=== PATIENT | male | born 1960 | race Caucasian/White ===

== ENCOUNTER 2017-04-02 05:50 | Observation (INO) | payer MEDICARE ==
[~2017-04-02] VITALS: Ht 175.3 cm; Wt 98.9 kg
[~2017-04-02 05:50] MED LIST: AMLODIPINE BES2.5 MG PO; ASPIRIN81 MG PO; ATORVASTATIN CA10 MG PO; CELEXA10 MG PO; FUROSEMIDE20 MG PO; IRON18 MG PO; ISOSORBIDE MONO10 MG PO; KAYEXALATE453.6 GM PO; LANTUS100 UNITS/ SQ; LISINOPRIL2.5 MG PO; NITROGLYCERIN0.4 MG SL; PLAVIX75 MG PO; VITAMIN D1000 UNIT PO
[2017-04-02] MEDS ORDERED: ATORVASTATIN CA20 MG PO (05:52)
[2017-04-02] MEDS ORDERED: CITALOPRAM HBR20 MG PO (05:53)
[2017-04-02] MEDS ORDERED: FAMOTIDINE20 MG PO (05:53)
[2017-04-02] MEDS ORDERED: BUMETANIDE2 MG PO (05:54)
[2017-04-02] MEDS ORDERED: KIONEX15 GM/60 M PO (05:57)
[2017-04-02] MEDS ORDERED: MULTIVITAMINS1 EAC7 PO (06:00)
[2017-04-02] MEDS ORDERED: ONDANSETRON HCL INJ 2 MG/ML VIAL IV STA (06:00)
[2017-04-02] MEDS ORDERED: SODIUM BICARBO650 MG PO (06:00)
[2017-04-02] MEDS ORDERED: HYDRALAZINE HCL25 MG PO (06:01)
[2017-04-02] MEDS ORDERED: ISOSORBIDE MONO30 MG PO (06:03)
[2017-04-02] MEDS ORDERED: METOPROLOL TART25 MG PO (06:08)
[2017-04-02] MEDS ORDERED: IRON PO (06:08)
[2017-04-02 06:09] LABS: BASOPHILS # (AUTO) 0.1 (0.0-0.1); BASOPHILS % 0.5 % (0.0-1.0); EOSINOPHILS # (AUTO) 0.4 (0.0-0.4); HEMOGLOBIN 13.6 g/dL (14.0-18.0); LYMPHOCYTES # (AUTO) 0.6 (1.0-3.2); LYMPHOCYTES % 5.9 % (18.0-39.1); MEAN CORPUSCULAR HEMOGLOBIN 30.9 pg (28-32); MEAN CORPUSCULAR VOLUME 90.9 fL (81-99); MONOCYTES # (AUTO) 0.8 (0.2-0.8); NEUTROPHILS # (AUTO) 8.2 (2.1-6.9); NEUTROPHILS % 81.3 % (38.7-80.0); PLATELET COUNT 163 x10e3/uL (140-360); RED CELL DISTRIBUTION WIDTH 13.1 % (11.7-14.4)
[2017-04-02 06:17] LABS: INR 0.89; PARTIAL THROMBOPLASTIN TIME 28.5 seconds (23.8-35.5); PROTHROMBIN TIME 12.5 seconds (11.9-14.5)
[2017-04-02] MEDS ORDERED: DIATRIZOATE MEGL/DIATRIZOA SOD 30 ML BTL PO ONE (06:17)
[2017-04-02 06:27] LABS: ALBUMIN 3.5 g/dL (3.5-5.0); ANION GAP 17.1 mmol/L (8-16); CALCIUM 9.2 mg/dL (8.4-10.2); CREATININE, SERUM 3.29 mg/dL (0.72-1.25); POTASSIUM 4.1 mmol/L (3.5-5.1)
[2017-04-02 06:29] LABS: CREATINE KINASE MB 1.3 ng/mL (0.00-5.00); TROPONIN I 0.016 ng/mL (0-0.300)
--- NOTE | 2017-04-02 06:57 | Diagnostic Imaging Report ---
EXAMINATION: CHEST SINGLE (PORTABLE) INDICATION: Syncopal episode COMPARISON: None FINDINGS: TUBES and LINES: None. LUNGS: Lungs are not well inflated. There are bibasilar atelectasis. There is mild prominence of the central pulmonary vasculature, consistent with pulmonary venous congestion. PLEURA: No pleural effusion or pneumothorax. HEART AND MEDIASTINUM: Cardiac size is mildly enlarged. There are atherosclerotic calcifications within the aorta. BONES AND SOFT TISSUES: No acute osseous lesion. Soft tissues are unremarkable. UPPER ABDOMEN: No free air under the diaphragm. IMPRESSION: No acute thoracic abnormality. Mild cardiomegaly without decompensation. Signed by: Dr. Sylvester Tapia M.D. on 04/02/2017 6:54 AM
--- NOTE | 2017-04-02 06:58 | Diagnostic Imaging Report ---
EXAMINATION: Head CT without contrast. HISTORY:Syncope, vomiting and weakness. COMPARISON:None. TECHNIQUE: Multidetector axial images were obtained from the foramen magnum to the vertex without contrast. The images were reconstructed using brain and bone algorithms. Thin section brain images were reformatted into coronal and sagittal planes. Intravenous contrast: None IMAGE QUALITY: Acceptable. FINDINGS: Skull/scalp: No abnormality. Parenchyma: Nonspecific few, scattered supratentorial white matter hypodensity are likely related to small vessel ischemic changes. No acute hemorrhage, mass or acute major vascular territorial infarct. Arteries: Atherosclerotic calcification in bilateral carotid siphon and V4 segment of the vertebral arteries. Dural sinuses: No abnormal density suggestive of thrombosis. Ventricles: No hydrocephalus or displacement. Extra-axial spaces: No abnormal density. Brain volume: Normal for age. Craniocervical junction: No mass, Chiari malformation, or basilar invagination. Sella: No mass. Paranasal/mastoid sinuses: Mild mucosal thickening in bilateral ethmoid sinuses. IMPRESSION: No acute intracranial abnormality. Signed by: Dr. Marcelle Haywood M.D. on 04/02/2017 6:54 AM
[2017-04-02] MEDS ORDERED: PANTOPRAZOLE 40 MG 10ML VIAL IV STA (07:11)
--- NOTE | 2017-04-02 08:26 | Diagnostic Imaging Report ---
PROCEDURE: CT ABDOMEN AND PELVIS WITHOUT CONTRAST TECHNIQUE: The abdomen and pelvis were scanned utilizing a multidetector helical scanner from the diaphragm to the lesser trochanter after the oral administration of Gastrografin intermixed with water. No IV contrast was administered. Coronal and sagittal multiplanar reformations were obtained. DLP: 762.44 mGy-cm COMPARISON: None. INDICATIONS: NAUSEA/VOMITTING WITH A HISTORY OF CKD FINDINGS: ABSENCE OF INTRAVENOUS CONTRAST DECREASES SENSITIVITY FOR DETECTION OF FOCAL LESIONS AND VASCULAR PATHOLOGY. LOWER THORAX: Normal. HEPATOBILIARY: No focal hepatic lesions. No biliary ductal dilatation. SPLEEN: No splenomegaly. PANCREAS: No focal masses or ductal dilatation. ADRENALS: No adrenal nodules. KIDNEYS/URETERS: No hydronephrosis, stones, or solid mass lesions. Right kidney has a maximal length of 10.2 cm and the left kidney has a maximal length of 10.2 cm. PELVIC ORGANS/BLADDER: Unremarkable. PERITONEUM / RETROPERITONEUM: No free air or fluid. LYMPH NODES: Multiple prominent inguinal lymph nodes. VESSELS: Atherosclerotic vascular disease. GI TRACT: No distention or wall thickening. The appendix is normal. BONES AND SOFT TISSUES: Degenerative changes of the spine. IMPRESSION: No acute abnormality within the abdomen or pelvis. Murali Wiley D.O. Dictated by: Murali Wiley D.O. on 04/02/2017 at 8:34 Electronically approved by: Murali Wiley D.O. on 04/02/2017 at 8:34
[2017-04-02] MEDS ORDERED: SODIUM CHLORIDE 0.9% 1000ML 1,000 ML IV SCH ×2 (09:33)
[2017-04-02] MEDS ORDERED: ONDANSETRON HCL INJ 2 MG/ML VIAL IV PRN (09:45)
[2017-04-02] MEDS ORDERED: MORPHINE SULFATE 2 MG/ML SYR IV PRN (10:00)
[2017-04-02] MEDS ORDERED: DEXTROSE 50% SYRINGE 50 ML IV PRN (13:45)
[2017-04-02] MEDS: HYDRALAZINE HCL 25 MG TAB PO SCH ×2 (14:08→20:56)
[2017-04-02] MEDS: SODIUM BICARBONATE 650 MG TAB PO SCH ×2 (14:08→20:57)
[2017-04-02] MEDS: METRONIDAZOLE 500MG/NS 100ML 100 ML IV SCH ×2 (14:08→22:00)
[2017-04-02] MEDS: METOCLOPRAMIDE HCL 10 MG TAB PO SCH ×3 (14:13→20:57)
--- NOTE | 2017-04-02 15:21 | History and Physical ---
PRIMARY CARE PROVIDER: Dr. Wilfred Sarmiento at the [facility]. CHIEF COMPLAINT: Nausea, vomiting and diarrhea. HISTORY OF PRESENT ILLNESS: Mr. Burgos is a 57-year-old gentleman who comes in complaining of nausea, vomiting and diarrhea for 12 hours. It started early this morning right after midnight. The patient got up to use the bathroom and had an unwitnessed syncopal event or near syncopal event. Patient called for his family who helped him back to bed. He cannot attribute the symptoms to anything he ate. He has had episodes of diarrhea in the past that resolved. Again, the nausea, vomiting and diarrhea started about 12 hours ago and continues. REVIEW OF SYSTEMS: He denies fever, chills or weight loss. He denies sinus congestion or sore throat. He denies chest pain or palpitations. He denies shortness breath, wheezing or cough. He has some mild generalized abdominal pain with nausea, vomiting and diarrhea. He denies dysuria or flank pain. He denies rash or pruritus. He denies joint pain or swelling. He denies bleeding or bruising. He denies headache or vertigo, but he has had a loss of consciousness. He denies depression, agitation, homicidal or suicidal ideation. PAST MEDICAL HISTORY: Significant for longstanding hypertension, type-2 diabetes, coronary artery disease with stent placed in 2010, end-stage renal disease on hemodialysis, and hyperlipidemia. He had coronary stents as noted above. MEDICATIONS: His regular medications include: 1. Pepcid 20 mg twice daily. 2. Nitroglycerin as needed. 3. Bumex 2 mg twice daily. 4. Iron twice daily. 5. Aspirin 81 mg daily. 6. Lipitor 40 mg at bedtime. 7. Celexa 40 mg at bedtime. 8. Plavix 75 mg daily. 9. Hydralazine 50 mg 3 times a day. 10. Imdur 30 mg twice a day. 11. Metoprolol 12.5 mg twice a day. 12. Multivitamin daily. 13. Sodium bicarbonate 1,200 mg 3 times a day. ALLERGIES: THE PATIENT HAS NO KNOWN DRUG ALLERGIES. FAMILY HISTORY: Remarkable for hypertension and diabetes. SOCIAL HISTORY: The patient is . American is his primary language. He does not smoke, drink or use illegal drugs. He is generally independently functioning. PHYSICAL EXAMINATION PSYCHIATRIC: He is alert and oriented times 3 with normal mood and affect. CONSTITUTIONAL: He has normal body habitus. He is in no acute distress. VITAL SIGNS: Blood pressure 113/72. Pulse 62 and regular. Respiratory rate 18. O2 sat 95%. Temperature 98.6. HEENT: His head is atraumatic. His eyes are anicteric with clear conjunctivae. Ears and nares are without erythema or discharge. Oropharynx is clear. NECK: Supple. No mass or thyromegaly. LYMPHATIC SYSTEM: He has no palpable cervical, axillary or inguinal adenopathy. CARDIOVASCULAR: His heart has a regular rate and rhythm without murmur or extra heart sounds. He has no carotid bruit. He has no peripheral edema. He has palpable dorsal pedal pulses. RESPIRATORY: Lungs are clear to auscultation and percussion with normal respiratory effort. GASTROINTESTINAL: The patient is diffusely tender in the periumbilical and epigastric area without rebound or guarding. He has no hepatosplenomegaly or masses, and normal bowel sounds are present. CUTANEOUS: His skin is warm and dry to touch with no rash or skin breakdown. MUSCULOSKELETAL: His joints are in normal alignment without erythema or swelling. He has no calf tenderness. NEUROLOGIC: Exam is nonfocal with intact cranial nerves and no motor or sensory deficits. DIAGNOSTIC STUDIES: Chest x-ray shows no acute disease. CT of the brain shows no acute disease. CT of the abdomen shows no acute disease. His fecal occult blood test was positive. His troponin 0.016. Chemistry profile showed normal electrolytes, CO2 27, creatinine 3.29 and BUN 23 for a GFR of 19. Glucose 219. Calcium 9.2. His liver enzymes were likewise normal. AST, ALT, bilirubin and alk phos are all normal. His pro time is 12.5. Troponin is 0.016. IMPRESSION AND PLAN 1. Acute gastroenteritis. The patient is on IV fluids and IV Zofran. Will also start p.o. Protonix a.c. and Reglan 10 mg. The patient will be given IV Zosyn and Flagyl empirically, and we will monitor and advance diet as tolerated. Currently on clear liquids only. 2. End-stage renal disease. Will consult nephrology for dialysis. 3. Hypertension complicated by coronary artery disease and end-stage renal disease. Will continue metoprolol, hydralazine, Imdur, aspirin, Plavix and Lipitor. 4. Type-2 diabetes with end-stage renal disease. Will continue sliding-scale insulin. 5. For prophylaxis, will give SCDs for DVT prophylaxis and Protonix for GI prophylaxis. Job#: [id number]
--- NOTE | 2017-04-02 15:31 | Consultation ---
DATE OF CONSULTATION: April 02, 2017 HISTORY OF PRESENT ILLNESS: Mr. Burgos is a 57-year-old gentleman who apparently was leaving town and developed diarrhea and abdominal pain along with some cough and congestion. He came here to the emergency room, currently lying supine, in no apparent distress. PAST MEDICAL HISTORY: Coronary artery disease, hypertension, type-2 diabetes, end-stage renal disease, secondary hyperparathyroidism. Currently lying supine in no apparent distress. Had an abdominal CT and pelvis. Please see official report. Shows no acute abnormalities in the abdomen and pelvis. He had a chest x-ray. Please see official report. Shows no acute thoracic abnormality with mild cardiomegaly with no cardiac decompensation. Currently sitting up in no apparent distress. At the moment denies nausea or vomiting. CURRENT MEDICATIONS 1. Sodium bicarbonate 3,900 mg p.o. t.i.d. 2. Regular insulin p.r.n. 3. Pantoprazole. 4. Ondansetron p.r.n. 5. Multivitamins 1 tablet p.o. daily. 6. Metoprolol 12.5 p.o. b.i.d. 7. Reglan 10 mg p.o. q.a.c. and nightly. 8. Hydralazine 50 mg p.o. t.i.d. 9. Plavix 75 mg daily. 10. Atorvastatin 40 mg daily. 11. Peptazole. 12. Currently receiving normal saline at 75 mL an hour, which I am going to stop. 13. Flagyl 500 mg IV q.8 h. SOCIAL HISTORY: Patient does not smoke or drink. ALLERGIES: NO APPARENT DRUG ALLERGIES. FAMILY HISTORY: Significant for diabetes. PHYSICAL EXAMINATION: GENERAL: Awake, alert, lying supine. No apparent distress. VITALS: Blood pressure 126/63, pulse rate 58, afebrile. Oxygen saturation 93% on room air. HEAD AND NECK: Corneas are clear. Oral mucosa dry. LUNGS: Bibasilar rales. HEART: S1, S2 audible. ABDOMEN: Otherwise, soft and nontender. Distended abdomen. No apparent visceromegaly. Nontender exam. LOWER EXTREMITY: No edema. IMPRESSION AND PLAN 1. Diarrhea with no evidence of clear-cut dehydration. 2. Underlying hypertension. 3. Diabetes. 4. Coronary artery disease. 5. End-stage renal disease. I will schedule for dialysis. Please see orders. Job#: [id number] MH
[2017-04-02] MEDS: PIPERACILLIN/TAZO 2.25 GM 50 ML IV SCH ×2 (15:45→22:00)
[2017-04-02] MEDS: INSULIN REGULAR, HUMAN 100 UNIT/1 ML 3ML VIAL SQ SCH ×2 (17:25→20:57)
[2017-04-02] MEDS: METOPROLOL TARTRATE 25 MG TAB PO SCH (17:25)
[2017-04-02] MEDS: ISOSORBIDE MONONITRATE 30 MG TAB CR PO SCH (17:25)
[2017-04-02 18:46] VITALS: BP 140/73
[2017-04-02 20:13] VITALS: BP 107/56
[2017-04-02] MEDS: CITALOPRAM HYDROBROMIDE 20 MG TAB PO SCH (20:56)
[2017-04-02] MEDS: ATORVASTATIN 40 MG TAB PO SCH (20:56)
[2017-04-02] MEDS ORDERED: ATORVASTATIN 20 MG TAB PO SCH (21:00)
[2017-04-02] MEDS ORDERED: SODIUM CHLORIDE 0.9% 250ML 250 ML ONE (22:14)
[2017-04-03] VITALS (10 sets, daily range): BP systolic 110–167; BP diastolic 62–72
[2017-04-03 06:02] LABS: BASOPHILS % 0.5 % (0.0-1.0); EOSINOPHILS # (AUTO) 0.1 (0.0-0.4); EOSINOPHILS % 2.3 % (0.0-6.0); HEMATOCRIT 35.8 % (38.2-49.6); HEMOGLOBIN 12.1 g/dL (14.0-18.0); LYMPHOCYTES # (AUTO) 0.6 (1.0-3.2); LYMPHOCYTES % 13.8 % (18.0-39.1); MEAN CORPUSCULAR HEMOGLOBIN 30.4 pg (28-32); MEAN CORPUSCULAR HGB CONC 33.8 g/dL (31-35); MEAN CORPUSCULAR VOLUME 89.9 fL (81-99); MONOCYTES # (AUTO) 0.4 (0.2-0.8); MONOCYTES % 9.6 % (4.4-11.3); NEUTROPHILS # (AUTO) 3.1 (2.1-6.9); NEUTROPHILS % 73.3 % (38.7-80.0); PLATELET COUNT 108 x10e3/uL (140-360); RED BLOOD COUNT 3.98 x10e6/uL (4.3-5.7); RED CELL DISTRIBUTION WIDTH 13.2 % (11.7-14.4)
[2017-04-03] MEDS: PIPERACILLIN/TAZO 2.25 GM 50 ML IV SCH ×3 (06:06→22:48)
[2017-04-03 06:11] LABS: MAGNESIUM 1.7 MG/DL (1.3-2.1)
[2017-04-03 06:19] LABS: ALBUMIN 3.1 g/dL (3.5-5.0); ALBUMIN/GLOBULIN RATIO 1.1 (0.8-2.0); ANION GAP 13.8 mmol/L (8-16); CALCIUM 8.4 mg/dL (8.4-10.2); CREATININE, SERUM 4.5 mg/dL (0.72-1.25); POTASSIUM 3.8 mmol/L (3.5-5.1)
[2017-04-03] MEDS: METRONIDAZOLE 500MG/NS 100ML 100 ML IV SCH ×3 (06:30→23:15)
[2017-04-03 06:41] LABS: THYROID STIMULATING HORMONE 0.534 uIU/mL (0.350-4.940)
[2017-04-03] MEDS: INSULIN REGULAR, HUMAN 100 UNIT/1 ML 3ML VIAL SQ SCH ×4 (07:30→21:58)
[2017-04-03] MEDS ORDERED: CLOPIDOGREL BISULFATE 75 MG TAB PO SCH (09:00)
[2017-04-03] MEDS: ISOSORBIDE MONONITRATE 30 MG TAB CR PO SCH ×2 (09:25→16:01)
[2017-04-03] MEDS: PANTOPRAZOLE SOD 40 MG TABEC PO SCH (09:25)
[2017-04-03] MEDS: METOPROLOL TARTRATE 25 MG TAB PO SCH ×2 (09:25→16:01)
[2017-04-03] MEDS: ASPIRIN 81 MG CHEW TAB PO SCH (09:25)
[2017-04-03] MEDS: METOCLOPRAMIDE HCL 10 MG TAB PO SCH ×4 (09:25→21:58)
[2017-04-03] MEDS: HYDRALAZINE HCL 25 MG TAB PO SCH ×3 (09:25→21:58)
[2017-04-03] MEDS: SODIUM BICARBONATE 650 MG TAB PO SCH ×3 (09:26→21:58)
[2017-04-03] MEDS: MULTIVITAMINS/MINERALS TAB PO SCH (09:26)
[2017-04-03] MEDS ORDERED: ACETAMINOPHEN 325 MG TAB PO PRN (14:45)
[2017-04-03] MEDS ORDERED: SODIUM CHLORIDE 0.9% 1000ML 1,000 ML IV ONE (15:45)
[2017-04-03] MEDS ORDERED: SODIUM CHLORIDE 0.9% 1000ML 2,000 ML IV PRN (16:00)
[2017-04-03] MEDS ORDERED: MORPHINE SULFATE 5 MG/ML VIAL IV PRN (16:45)
[2017-04-03] MEDS: CITALOPRAM HYDROBROMIDE 20 MG TAB PO SCH (21:58)
[2017-04-03] MEDS: ATORVASTATIN 40 MG TAB PO SCH (21:58)
[2017-04-04 00:52] VITALS: BP 141/90
[2017-04-04 04:00] VITALS: BP 157/70
[2017-04-04] MEDS: PIPERACILLIN/TAZO 2.25 GM 50 ML IV SCH (05:31)
[2017-04-04] MEDS: METRONIDAZOLE 500MG/NS 100ML 100 ML IV SCH ×2 (06:09→13:28)
[2017-04-04 06:16] LABS: BASOPHILS % 0.7 % (0.0-1.0); EOSINOPHILS # (AUTO) 0.3 (0.0-0.4); EOSINOPHILS % 7.3 % (0.0-6.0); HEMATOCRIT 33.7 % (38.2-49.6); HEMOGLOBIN 11.6 g/dL (14.0-18.0); LYMPHOCYTES # (AUTO) 0.6 (1.0-3.2); MEAN CORPUSCULAR HEMOGLOBIN 30.7 pg (28-32); MEAN CORPUSCULAR HGB CONC 34.4 g/dL (31-35); MEAN CORPUSCULAR VOLUME 89.2 fL (81-99); MONOCYTES # (AUTO) 0.6 (0.2-0.8); MONOCYTES % 12.9 % (4.4-11.3); NEUTROPHILS # (AUTO) 2.9 (2.1-6.9); NEUTROPHILS % 64.9 % (38.7-80.0); PLATELET COUNT 88 x10e3/uL (140-360); RED BLOOD COUNT 3.78 x10e6/uL (4.3-5.7); RED CELL DISTRIBUTION WIDTH 13.1 % (11.7-14.4)
[2017-04-04 06:35] LABS: ANION GAP 15.8 mmol/L (8-16); CALCIUM 8.4 mg/dL (8.4-10.2); CREATININE, SERUM 4.64 mg/dL (0.72-1.25); POTASSIUM 3.8 mmol/L (3.5-5.1)
[2017-04-04] MEDS: INSULIN REGULAR, HUMAN 100 UNIT/1 ML 3ML VIAL SQ SCH ×2 (07:30→11:30)
[2017-04-04 08:12] VITALS: BP 139/64
[2017-04-04 08:26] VITALS: BP 139/64
[2017-04-04] MEDS: ASPIRIN 81 MG CHEW TAB PO SCH (08:53)
[2017-04-04] MEDS: HYDRALAZINE HCL 25 MG TAB PO SCH (08:53)
[2017-04-04] MEDS: PANTOPRAZOLE SOD 40 MG TABEC PO SCH (08:53)
[2017-04-04] MEDS: METOCLOPRAMIDE HCL 10 MG TAB PO SCH ×2 (08:53→13:28)
[2017-04-04] MEDS: ISOSORBIDE MONONITRATE 30 MG TAB CR PO SCH (08:54)
[2017-04-04] MEDS: METOPROLOL TARTRATE 25 MG TAB PO SCH (08:54)
[2017-04-04] MEDS: MULTIVITAMINS/MINERALS TAB PO SCH (08:54)
[2017-04-04] MEDS: SODIUM BICARBONATE 650 MG TAB PO SCH (08:56)
[2017-04-04 12:43] VITALS: BP 168/73
[2017-04-04] MEDS ORDERED: METOCLOPRAMIDE10 MG PO (14:39)
[2017-04-04] MEDS ORDERED: PROTONIX40 MG/ML PO (14:39)
[2017-04-04 16:38] VITALS: BP 177/79
--- NOTE | 2017-04-05 14:35 | Discharge Summary ---
PRIMARY CARE PROVIDER: Dr. Wilfred Sarmiento. CONSULTING PHYSICIANS: Dr. Bertin Layne and Dr. José Miguel Krueger. CHIEF COMPLAINT: Vomiting, volume depletion, syncope. ALLERGIES: NO DINH DRUG ALLERGIES. HOSPITAL COURSE: Patient initially came in with nausea, vomiting, and diarrhea through the emergency room. This is a 57-year-old male that reported having 12 hours of the formation of nausea, vomiting, and diarrhea. During the admission, patient was seen by GI as well as renal. Renal has decided to discharge him. Patient is to follow up with his own dialysis center tomorrow. Patient had a positive occult blood and GI has also agreed as well as renal to followup as outpatient for a colonoscopy. Patient appears much better. Patient is wanting to be discharged as well today. Therefore, we will proceed with discharging patient. Patient should continue on monitoring his diarrhea. Continue with fluid intake, minimal not to be going to fluid overload. Chest x-ray that was done showed no acute disease. CT of the brain showed no acute distress. CT of the abdomen, no acute disease. Troponin 0.016, creatinine 2.29, BUN 23, GFR of 19, glucose 219, calcium 9.6, has normal liver enzymes. DISCHARGE DIAGNOSES 1. Acute gastroenteritis that has resolved. Patient will go home on Protonix. 2. End-stage renal disease. Will need to follow up as outpatient for dialysis. 3. Hypertension. Continue with blood pressure medication. 4. Diabetes mellitus type 2. Continue with his home medications. DICTATED BY: Trenton Encinas MD TUYET LEW MD Job#: [id number] VAS
[2017-04-07 06:13] LABS: ENDOMYSIAL ANTIBODIES, IGA Negative (Negative)
== END 2017-04-04 15:47 | disposition home or self-care (01) ==
LOC: ER 05:50 → ERHOLD 09:41 → IMCU 18:08
PROVIDERS: ADMIT Internal Medicine; ATTEND Internal Medicine
DX: K52.9 Noninfective gastroenteritis and colitis, unspecified (principal); E86.9 Volume depletion, unspecified; E11.22 Type 2 diabetes mellitus with diabetic chronic kidney disease; I12.0 Hypertensive chronic kidney disease with stage 5 chronic kidney disease or end stage renal disease; N18.6 End stage renal disease; Z99.2 Dependence on renal dialysis; E11.40 Type 2 diabetes mellitus with diabetic neuropathy, unspecified; E11.319 Type 2 diabetes mellitus with unspecified diabetic retinopathy without macular edema; Z79.4 Long term (current) use of insulin; I25.10 Atherosclerotic heart disease of native coronary artery without angina pectoris; Z95.5 Presence of coronary angioplasty implant and graft; N25.81 Secondary hyperparathyroidism of renal origin; R19.5 Other fecal abnormalities; Z79.82 Long term (current) use of aspirin; Z79.02 Long term (current) use of antithrombotics/antiplatelets
CPT/HCPCS: 36415 ×3; 70450; 71010; 74176; 80048; 80053 ×2; 82270; 82550; 82553; 82784; 82948 ×3; 83516; 83735; 83880; 84443; 84484; 85025 ×3; 85610; 85730; 86256; 86704; 86706; 86850; 86900; 87340; 87493; 93005; 99284; G0378 ×3; J2405; J2543 ×3; J7030 ×2; J7050